=== PATIENT | male | born 1995 | race Two or more races ===

== ENCOUNTER 2021-07-05 23:25 | Emergency (ER) | payer OTHER ==
[~2021-07-05] VITALS: Ht 182.9 cm; Wt 72.6 kg
--- NOTE | 2021-07-05 23:55 | NUR ---
Dr. Jansen at bedside for MSE.
--- NOTE | 2021-07-06 00:05 | NUR ---
Xray at bedside.
--- NOTE | 2021-07-06 00:23 | NUR ---
Patient refused to have cructhes due to having one [employer].
--- NOTE | 2021-07-06 00:24 | NUR ---
Patient discharged to home in stable condition. Written and verbal after care instructions given. Patient verbalizes understanding of instructions. Stressed follow up or return to ER for worsening s/s.
[2021-07-06 00:25] VITALS: BP 130/80
== END 2021-07-06 00:25 | disposition home or self-care (01) ==
LOC: ER 23:32
DX: S93.401A Sprain of unspecified ligament of right ankle, initial encounter (principal); S96.911A Strain of unspecified muscle and tendon at ankle and foot level, right foot, initial encounter; V00.141A Fall from scooter (nonmotorized), initial encounter; Y92.89 Other specified places as the place of occurrence of the external cause
CPT/HCPCS: 73630; A4663